=== PATIENT | male | born 1960 | race Caucasian/White ===

== ENCOUNTER → 2016-04-28 | Outpatient (CLI) | payer BC ==
[~2016-04-28] MED LIST: MOTRIN800 MG PO; NO HOME MEDICATIONS; NORCO 325 MG-51 TAB PO; VICODIN 5/5001 UDTAB PO
== END ==
LOC: COL.RAD 10:38
DX: S12.8XXA Fracture of other parts of neck, initial encounter (principal); J35.8 Other chronic diseases of tonsils and adenoids; M47.892 Other spondylosis, cervical region

== ENCOUNTER 2019-10-01 10:25 | Day surgery (SDC) | payer BC ==
[~2019-10-01] VITALS: Ht 182.9 cm; Wt 99.2 kg
[2019-10-01] MEDS ORDERED: BYSTOLIC10 MG PO (11:03)
[2019-10-01] MEDS ORDERED: ELIQUIS 5MG PO (11:04)
[2019-10-01] MEDS ORDERED: CARTIA XT180 MG PO (11:04)
[2019-10-01] MEDS ORDERED: VITAMIND3 5000 PO (11:05)
[2019-10-01] MEDS ORDERED: SILENOR6 MG PO (11:05)
[2019-10-01 11:30] VITALS: BP 137/109; PULSE 108; TEMP 97.4
[2019-10-01 11:57] LABS: INR 1.3 (0.8-3.0); PROTHROMBIN TIME 14.4 SECONDS (9.7-12.8)
[2019-10-01 12:00] LABS: PARTIAL THROMBOPLASTIN TIME 48.1 SECONDS (26.0-37.0)
[2019-10-01 12:10] LABS: HEMATOCRIT 44.4 % (42.0-52.0); HEMOGLOBIN 15.7 g/dl (13.5-18.0); MEAN CELL VOLUME 92 fl (80.0-100.0); MEAN CORPUSCULAR HEMOGLOBIN 33 pg (27.0-31.0); MEAN CORPUSCULAR HGB CONC 35 g/dl (33.0-37.0); PLATELET COUNT 226 K/mm3 (130-400); RED BLOOD COUNT 4.82 M/mm3 (4.20-5.60); REDCELL DISTRIBUTION WIDTH-CV 11.9 % (11.5-14.5)
[2019-10-01 12:12] LABS: CALCIUM 9.2 mg/dL (8.4-10.2); CREATININE, serum 1.21 (0.66-1.25); MAGNESIUM 2.1 mg/dL (1.6-2.3); POTASSIUM 4.4 mmol/L (3.4-5.0)
[2019-10-01 12:44] LABS: THYROID STIMULATING HORMONE 1.06 uIU/mL (0.465-4.680)
[2019-10-01] MEDS ORDERED: TAMBOCOR50 MG PO (13:00)
[2019-10-01 13:10] VITALS: BP 93/74; PULSE 53
--- NOTE | 2019-10-01 13:10 | NUR ---
Bedside report recieved from [facility]. Pt A&O, free of complaint. Attempting to reach his by text. RT in room completing EKG.
[2019-10-01] MEDS ORDERED: BYSTOLIC5 MG PO (13:13)
[2019-10-01] MEDS ORDERED: NORVASC2.5 MG PO (13:13)
[2019-10-01 13:25] VITALS: BP 98/78; PULSE 50
--- NOTE | 2019-10-01 13:25 | NUR ---
Pt continues to rest comfortably in bed, no signs of distress or complaints. Call light in reach.
[2019-10-01 13:40] VITALS: BP 97/80; PULSE 49
[2019-10-01 13:55] VITALS: BP 113/94; PULSE 53
--- NOTE | 2019-10-01 13:55 | NUR ---
Pt able to change positions and abmulate about room without difficulty or complaints. VS remain stable with activity.
--- NOTE | 2019-10-01 14:00 | NUR ---
DC instructions and new rxs, dose chagnes reviewed with pt. VS remain stable prior to discharge. IV DC'd with catheter intact, bleeding controlled. He is assisted to private car by wheelchair, in care of his .
== END 2019-10-01 14:00 | disposition home or self-care (01) ==
LOC: COL.CAR 10:25
PROVIDERS: Internal Medicine Adult Congenital Heart Disease
DX: I48.19 Other persistent atrial fibrillation (principal); I10 Essential (primary) hypertension; I08.1 Rheumatic disorders of both mitral and tricuspid valves; I42.0 Dilated cardiomyopathy; E78.49 Other hyperlipidemia; G47.33 Obstructive sleep apnea (adult) (pediatric); G47.00 Insomnia, unspecified; M19.049 Primary osteoarthritis, unspecified hand; Z79.01 Long term (current) use of anticoagulants; Z88.8 Allergy status to other drugs, medicaments and biological substances; Z91.041 Radiographic dye allergy status
CPT/HCPCS: J2704

== ENCOUNTER 2021-06-01 09:07 | Emergency (ER) | payer BC ==
[~2021-06-01] VITALS: Ht 182.9 cm; Wt 94.5 kg
[~2021-06-01 09:07] MED LIST changes: +BYSTOLIC10 MG PO; +BYSTOLIC5 MG PO; +CARTIA XT180 MG PO; +ELIQUIS 5MG PO; +NORVASC2.5 MG PO; +SILENOR6 MG PO; +TAMBOCOR50 MG PO; +VITAMIND3 5000 PO
[2021-06-01 09:24] LABS: BASO % 0.4 % (0.0-2.0); EOS # 0.1 K/mm3 (0.0-0.7); EOS % 1.2 % (0.0-4.0); GRAN # 5.5 K/mm3 (1.4-6.5); GRAN % 57.4 % (42.2-75.2); HEMATOCRIT 42.9 % (42.0-52.0); HEMOGLOBIN 14.9 g/dl (13.5-18.0); LYMPH # 2.7 K/mm3 (1.2-3.4); LYMPH % 28.7 % (20.0-51.0); MEAN CELL VOLUME 92 fl (80.0-100.0); MEAN CORPUSCULAR HEMOGLOBIN 32 pg (27-31); MEAN CORPUSCULAR HGB CONC 35 g/dl (33.0-37.0); MEAN PLATELET VOLUME 8.5 fl (7.4-10.4); MONO # 1.2 K/mm3 (0.1-0.6); MONO % 12.1 % (1.7-9.3); PLATELET COUNT 292 K/mm3 (130-400); RED BLOOD COUNT 4.68 M/mm3 (4.20-5.60); REDCELL DISTRIBUTION WIDTH-CV 12.6 % (11.5-14.5)
[2021-06-01 09:43] LABS: ALANINE AMINOTRANSFERASE 45 U/L (0-55); ALKALINE PHOSPHATASE 46 U/L (40-150); ANION GAP 9 mmol/L (7-16); AST,SGOT 32 U/L (5-34); BLOOD UREA NITROGEN 22 mg/dL (8-26); CALCIUM 9.1 mg/dL (8.4-10.2); CARBON DIOXIDE 23 mmol/L (23-31); CHLORIDE 108 mmol/L (98-107); CREATININE, serum 1.22 mg/dL (0.72-1.25); GLUCOSE 114 mg/dL (70-99); POTASSIUM 3.9 mmol/L (3.5-4.5); SODIUM 140 mmol/L (136-145)
[2021-06-01 09:50] LABS: TROPONIN-I < 0.010 ng/mL (0.00-0.033)
[2021-06-01 15:30] VITALS: TEMP 98.1
[2021-06-01 16:05] VITALS: BP 152/100; PULSE 51
== END 2021-06-01 16:05 | disposition home or self-care (01) ==
LOC: COL.ER 09:07
PROVIDERS: Student in an Organized Health Care Education/Training Program
DX: I48.91 Unspecified atrial fibrillation (principal); Z79.01 Long term (current) use of anticoagulants
CPT/HCPCS: G0378; J2704